=== PATIENT | male | born 1985 | race Caucasian/White ===

== ENCOUNTER 2017-12-16 19:50 | Emergency (ER) | payer BC ==
[2017-12-16 20:02] VITALS: BP 120/80; PULSE 81; RESP 16; TEMP 98.1
[2017-12-16] MEDS ORDERED: DIPH,PERTUS(ACELL)TETVAC-LF 0.5 ML VIAL IM ONE (20:18)
--- NOTE | 2017-12-16 20:22 | ED ---
Fall HPI - General Chief Complaint: Fall Stated Complaint: Rt leg lac Time Seen by Provider: 12/16/17 20:06 Source: patient Mode of arrival: ambulatory - History of Present Illness Initial Comments: Patient is a 32-year-old male presenting for injuries sustained from a fall. He states that he was fishing and slid down rocks and boulders approximately 10 feet. He states that he did not actually fall but rather it was a slide down a rough terrain. He denies any back pain, head injury and states that the majority of his injuries are on the right side. The significant injury he states is on the right knee although he did have scrapes on the right foot as well as right elbow - Related Data Previous Rx's Medication Instructions Recorded Sulfamethox-Tmp 800-160Mg [Bactrim 1 tab PO Q12HR #14 tab 12/16/17 DS 800-160 mg] Allergies Allergy/AdvReac Type Severity Reaction Status Date / Time Penicillins Allergy Unknown Verified 12/16/17 20:01 Childhood Review of Systems ROS Statement: Those systems with pertinent positive or pertinent negative responses have been documented in the HPI. Constitutional: Negative for chills, fatigue and fever. HENT: Negative for congestion. Respiratory: Negative for chest tightness, shortness of breath and wheezing. Negative for cough Cardiovascular: Negative for chest pain and palpitations. Gastrointestinal: Negative for abdominal pain. Negative for abdominal distention , diarrhea, nausea and vomiting. Genitourinary: Negative for dysuria. Musculoskeletal: Negative for back pain, neck pain and neck stiffness. Negative for joint pain or swelling Skin: Positive for laceration and abrasion. Neurological: Negative for dizziness, speech difficulty, weakness and light- headedness. Psychiatric/Behavioral: Negative for agitation and confusion. Negative for anxiety ROS Other: All systems not noted in ROS Statement are negative. Past Medical History Past Medical History: No Reported History History of Any Multi-Drug Resistant Organisms: None Reported Past Surgical History: No Surgical Hx Reported Past Psychological History: No Psychological Hx Reported Smoking Status: Never smoker Past Alcohol Use History: Occasional Past Drug Use History: None Reported General Exam - General Exam Comments Initial Comments: Constitutional: Pt is oriented to person, place, and time. Pt appears well- developed and well-nourished. No distress. HENT: Head: Normocephalic and atraumatic. Eyes: EOM are normal. Neck: Normal range of motion. Neck supple. Cardiovascular: Normal rate, regular rhythm, S1 normal, S2 normal and normal heart sounds. Exam reveals no gallop and no friction rub. No murmur heard. Pulmonary/Chest: Effort normal and breath sounds normal. No tachypnea and no bradypnea. No respiratory distress. No wheezes or rales noted. Abdominal: Soft. Bowel sounds are normal. Pt exhibits no shifting dullness, no distension, no pulsatile liver, no fluid wave, no abdominal bruit and no ascites. There is no tenderness. There is no rigidity, no rebound, no guarding, no tenderness at McBurney's point and negative Colon's sign. Musculoskeletal: Normal range of motion. Neurological: Pt is alert and oriented to person, place, and time. No cranial nerve deficit. Skin: Skin is warm and dry. No rash noted. Pt is not diaphoretic. No pallor. There are small superficial abrasion measures approximate 5 cm on the right anterior proximal surface of the foot. There is an irregular shaped laceration approximately 2 cm inferior to the right patella. There is no tendon or muscle involvement. There is a 0.5 cm laceration on the right olecranon process Psychiatric: Pt has a normal mood and affect. Pt behavior is normal. Thought content normal. Limitations: no limitations Course Vital Signs 12/16/17 19:57 Temperature 98.1 F Pulse Rate 81 Respiratory 16 Rate Blood Pressure 120/80 O2 Sat by Pulse 98 Oximetry Procedures - Laceration Laceration #1 Consent Obtained: verbal consent Time Out Performed: Yes Indication: laceration Site: upper extremity Description: linear Depth: simple, single layer Anesthetic Used: lidocaine 1% Anesthesia Technique: local infiltration Amount (mls): 1 Pre-repair: wound explored, irrigated extensively, deep structures intact, foreign body removed Type of Sutures: nylon Size of Sutures: 3-0 Number of Sutures: 1 Technique: simple, interrupted Patient Tolerated Procedure: well, no complications Laceration #2 Consent Obtained: verbal consent Time Out Performed: Yes Indication: laceration Site: upper extremity Size (cm): 2 Description: linear, irregular Depth: simple, single layer Anesthetic Used: lidocaine 1% Anesthesia Technique: local infiltration Pre-repair: wound explored, irrigated extensively, deep structures intact Type of Sutures: nylon Size of Sutures: 3-0 Number of Sutures: 6 Technique: simple, interrupted Patient Tolerated Procedure: well, no complications Medical Decision Making - Medical Decision Making X-ray showed no evidence of fractures but did show multiple foreign bodies. Foreign body was found from the right elbow wound and was repaired as per noted in the procedure note. The wound on the right simmons was explored extensively and no foreign bodies could be noted. This also was repaired without complication and patient was given a prescription for antibiotics because of the contacts an environment that the injury happened in. Patient was advised to follow up with PCP in next 1-2 days and/or return to emergency department if the symptoms worsened. Patient was agreeable plan. Disposition Clinical Impression: Laceration Disposition: HOME SELF-CARE Condition: Good Instructions: Care For Your Stitches (ED) Prescriptions: Sulfamethox-Tmp 800-160Mg [Bactrim DS 800-160 mg] 1 tab PO Q12HR #14 tab Is patient prescribed a controlled substance at d/c from ED?: No Referrals: Sean Mattson [facility] [REFERRING] - 1-2 days Time of Disposition: 22:10
--- NOTE | 2017-12-16 20:37 | XR ---
EXAMINATION TYPE: XR elbow limited RT DATE OF EXAM: 12/16/2017 COMPARISON: NONE HISTORY: Pain TECHNIQUE: 3 views FINDINGS: I see no fracture nor dislocation. Elbow joint spaces are normal. There is no sign of joint effusion. IMPRESSION: No fracture. There is small soft tissue laceration deformity on the posterior proximal ul na. There is possible small soft tissue 2 mm foreign body.
--- NOTE | 2017-12-16 20:38 | XR ---
EXAMINATION TYPE: XR knee complete RT DATE OF EXAM: 12/16/2017 COMPARISON: NONE HISTORY: Knee pain TECHNIQUE: 3 views FINDINGS: There is soft tissue swelling anterior to the patella and proximal tibia. I see no fracture nor dislocation. There is no sign of knee joint effusion. IMPRESSION: Anterior soft tissue swelling with small 2 to 3 mm foreign bodies projected anteriorly ov er the proximal tibia. No fracture.
== END 2017-12-16 22:17 | disposition home or self-care (01) ==
LOC: EC 19:50 → SUPCPDRO 19:50 → EC 22:17
DX: S51.021A Laceration with foreign body of right elbow, initial encounter (principal); S81.811A Laceration without foreign body, right lower leg, initial encounter; S90.811A Abrasion, right foot, initial encounter; Z23 Encounter for immunization; Z88.0 Allergy status to penicillin; W17.89XA Other fall from one level to another, initial encounter; Y93.89 Activity, other specified; Y92.89 Other specified places as the place of occurrence of the external cause
CPT/HCPCS: 12001; 12031; 90471; 90715; 99284